=== PATIENT | female | born 1995 | race Two or more races ===

== ENCOUNTER 2018-08-27 18:05 | Emergency (ER) | payer MEDICAID ==
[~2018-08-27] VITALS: Ht 154.9 cm; Wt 71.2 kg
[2018-08-27 18:12] VITALS: BP 123/78
[2018-08-27] MEDS: ACETAMINOPHEN 325 MG TAB PO ONE ×2 (18:19)
[2018-08-27] MEDS: cefTRIAXone SOD 1,000 MG VL IM ONE (19:37)
[2018-08-27] MEDS: DexAMETHasone SOD PHOS 10MG/1ML VIAL INJ IM ONE (19:37)
== END 2018-08-27 19:56 | disposition home or self-care (01) ==
LOC: ER 18:18
DX: O26.891 Other specified pregnancy related conditions, first trimester (principal); O99.511 Diseases of the respiratory system complicating pregnancy, first trimester; J06.9 Acute upper respiratory infection, unspecified; R50.9 Fever, unspecified; Z3A.12 12 weeks gestation of pregnancy
CPT/HCPCS: 96372; 99283; J0696; J1100